=== PATIENT | female | born 1975 | race Hispanic/Latino ===

== ENCOUNTER 2018-08-05 10:05 | Emergency (ER) | payer OTHER ==
[2018-08-05] MEDS ORDERED: IBUPROFEN 600 MG TABLET ONE (10:36)
== END 2018-08-05 11:22 | disposition home or self-care (01) ==
LOC: EDH 10:05
DX: S63.591A Other specified sprain of right wrist, initial encounter (principal); S00.33XA Contusion of nose, initial encounter; I10 Essential (primary) hypertension; Y04.0XXA Assault by unarmed brawl or fight, initial encounter; Y93.89 Activity, other specified; Y92.128 Other place in nursing home as the place of occurrence of the external cause; Y99.8 Other external cause status
CPT/HCPCS: 73110